=== PATIENT | female | born 1995 | race Hispanic/Latino ===

== ENCOUNTER 2024-08-02 20:44 | Observation (INO) | payer SELFPAY ==
[2024-08-02] MEDS ORDERED: diphenhydrAMINE 50 MG/ML VIAL ONE (21:18)
[2024-08-02] MEDS ORDERED: Metoclopramide HCl 10 MG (2 mL) VIAL ONE (21:18)
[2024-08-02 21:20] LABS: #Basophils 0.03 10x3/uL (0.0-0.2); #Eosinophils Less than 0.03 10x3/uL (0.0-0.7); %Basophils 0.3 % (0.0-1.0); %Lymphocytes 13.4 % (21.0-51.0); %Monocytes 5.2 % (0.0-10.0); %Neutrophils 80.9 % (42.0-75.0); Hematocrit 42.9 % (36.0-47.0); Hemoglobin 14.8 g/dL (12.0-16.0); Mean Corpuscular HGB CONC 34.5 g/dL (32.0-36.0); Mean Corpuscular Hemoglobin 26.9 pg (27.0-31.0); Mean Corpuscular Volume 77.9 fL (78.0-98.0); Mean Platelet Volume 9.9 fL (7.4-10.4); Platelet Count 307 10x3/uL (130-400); RBC Distribution Width 13.7 % (11.5-14.5); Red Blood Cell (RBC) Count 5.51 mill/uL (4.20-5.40)
[2024-08-02 21:39] LABS: Phosphorus 2.4 mg/dL (2.3-4.7)
[2024-08-02 21:40] LABS: ALT (SGPT) 11 U/L (8-55); AST (SGOT) 13 U/L (5-34); Albumin 4.4 g/dL (3.5-5.0); Alkaline Phosphatase 87 U/L (40-110); Anion Gap 24 mmol/L (10-20); BUN (Urea Nitrogen) 15 mg/dL (7.0-18.7); Bilirubin, Total 0.7 mg/dL (0.2-1.2); Calcium 9.4 mg/dL (7.8-10.44); Carbon Dioxide 19 mmol/L (22-29); Chloride 100 mmol/L (98-107); Globulin 3.5 g/dL (2.4-3.5); Glucose 346 mg/dL (70-105); Lipase 26 U/L (8-78); Magnesium 1.9 mg/dL (1.6-2.6); Potassium 3.6 mmol/L (3.5-5.1); Protein, Total 7.9 g/dL (6.0-8.3); Sodium 139 mmol/L (136-145)
[2024-08-02 21:45] LABS: Troponin I Less than 0.010 ng/mL (< 0.028)
[2024-08-02] MEDS ORDERED: Ondansetron PF 4 MG/2 ML Vial ONE (21:59)
[2024-08-02 22:28] LABS: Actual Bicarbonate (HCO3v) 24.1 mEq/L (22-28); Analyzer IN Cardio ER; Calcium, Ionized (venous) 1.07 mmol/L (1.16-1.32); Chloride (VBG) 100 mmol/L (98-106); Hematocrit-VBG 43 % (36.0-47.0); Hemoglobin (Hb) 14.5 g/dL (11.7-15.5); Potassium (VBG) 3.44 mmol/L (3.70-5.30); Sodium 141 mmol/L (133-146); pH (venous) 7.424 (7.32-7.43)
[2024-08-02 23:03] LABS: Calc. Creatinine Clearance 0 mL/min (70-130); Estimated GFR 123
[2024-08-02 23:31] LABS: Bacteria/HPF 3+ HPF (None Seen); Bilirubin Negative (Negative); Blood, Urine Negative (Negative); CAUTI Indications for Culture Dysuria,urgency,freq; Clarity Turbid (Clear); Glucose, Urine (Dipstick) Greater than 1000 mg/dL (Negative); Ketone, Urine 80 mg/dL (Negative); Leukocyte Negative Leu/uL (Negative); Nitrite Negative (Negative); Protein, Urine (Dipstick) 10 mg/dL (Neg-Trace); RBC/HPF 0-3 HPF (0-3)
[2024-08-02 23:48] LABS: Urine Culture Reflex Yes Yes
[2024-08-03] MEDS ORDERED: Promethazine HCl 25 MG/ML VIAL ONE (00:07)
[2024-08-03] MEDS ORDERED: Glucagon 1 MG/ML KIT IM PRN (00:18)
[2024-08-03] MEDS ORDERED: Dextrose 5% in Water 1,000 ML IV PRN (00:18)
[2024-08-03] MEDS ORDERED: Acetaminophen 325 MG TAB PO PRN (00:18)
[2024-08-03] MEDS ORDERED: Dextrose 50% Abboject 50 ML SYRINGE SLOW IVP PRN (00:18)
[2024-08-03 00:31] LABS: BHCG - Serum Negative (NEGATIVE); Pregs Control Background? CLEAR/WHITE (CLR/WHITE); Pregs Control Bar Appear? YES (CONTROL BAR)
[2024-08-03 00:39] LABS: Hemoglobin A1c 11.8 % (4.0-6.0)
[2024-08-03 01:05] VITALS: BMI 24.7
[2024-08-03] MEDS: Sodium Chloride 0.9% 1,000 ML IV SCH (01:32)
[2024-08-03] MEDS: Enoxaparin 40 MG (0.4 mL) SYRINGE SC SCH (01:32)
[2024-08-03] MEDS: diphenhydrAMINE 50 MG/ML VIAL IVP SCH (03:31)
[2024-08-03] MEDS: Metoclopramide HCl 10 MG (2 mL) VIAL IVP SCH ×2 (03:31→18:17)
[2024-08-03] MEDS: Sodium Bicarb 50 mEq/50 ML VIAL IVP SCH (04:03)
[2024-08-03] MEDS: Insulin Lispro 100 UNIT/ML 10 ML VIAL SC PRN ×2 (04:15→21:24)
[2024-08-03] MEDS: Labetalol HCl 100 MG/20 ML VIAL SLOW IVP SCH (04:45)
[2024-08-03 05:47] LABS: #Basophils Less than 0.03 10x3/uL (0.0-0.2); #Eosinophils Less than 0.03 10x3/uL (0.0-0.7); %Basophils 0.2 % (0.0-1.0); %Lymphocytes 12.5 % (21.0-51.0); %Monocytes 4.2 % (0.0-10.0); %Neutrophils 82.8 % (42.0-75.0); Hematocrit 36.2 % (36.0-47.0); Mean Corpuscular HGB CONC 33.1 g/dL (32.0-36.0); Mean Corpuscular Hemoglobin 26.8 pg (27.0-31.0); Platelet Count 285 10x3/uL (130-400); RBC Distribution Width 13.7 % (11.5-14.5); Red Blood Cell (RBC) Count 4.47 mill/uL (4.20-5.40)
[2024-08-03 06:19] LABS: Anion Gap 15 mmol/L (10-20); BUN (Urea Nitrogen) 9 mg/dL (7.0-18.7); Calc. Creatinine Clearance 182 mL/min (70-130); Calcium 7.7 mg/dL (7.8-10.44); Carbon Dioxide 21 mmol/L (22-29); Chloride 108 mmol/L (98-107); Estimated GFR 131; Glucose 179 mg/dL (70-105); Potassium 3.1 mmol/L (3.5-5.1); Sodium 141 mmol/L (136-145)
[2024-08-03] MEDS: Ondansetron PF 4 MG/2 ML Vial IVP PRN (07:26)
[2024-08-03] MEDS: Famotidine/PF 20 mg/2ml Vial SLOW IVP SCH (07:26)
[2024-08-03] MEDS: Promethazine HCl 12.5 MG in Sodium Chloride 0.9% 50 ML IVPB PRN (08:25)
[2024-08-03 09:18] LABS: Amphetamine Not Detected (NotDetected); Barbiturates Screen Not Detected (NotDetected); Benzodiazepine Screen Not Detected (NotDetected); Cocaine Metabolite Screen Not Detected (NotDetected); Methadone Not Detected (NotDetected); Methamphetamine Not Detected (NotDetected); Opiate Screen Not Detected (NotDetected); Oxycodone Screen Not Detected (NotDetected); Phencyclidine (PCP) Not Detected (NotDetected); THC/Cannabinoid Screen Not Detected (NotDetected); Tricyclic Screen Not Detected (NotDetected)
[2024-08-03] MEDS: Benzocaine/Menthol 1 LOZ LOZ PO PRN (12:11)
[2024-08-03] MEDS ORDERED: Electrolyte Replacement Protocol 1 EACH FS PRN (16:33)
[2024-08-03] MEDS: cefTRIAXone\\ROCEPHIN 1 GM in Sodium Chloride 0.9% 100 ML IVPB SCH (17:30)
[2024-08-03] MEDS: Sodium Chloride 0.45% 1,000 ML IV SCH (17:30)
[2024-08-03] MEDS ORDERED: Metoclopramide HCl 10 MG TAB PO SCH (17:45)
[2024-08-04] MEDS ORDERED: Potassium Chloride 20 MEQ in Premix 1 BAG IVPB SCH
[2024-08-04] MEDS: Potassium Bicarbonate/Cit Ac 20 MEQ TAB PO SCH (00:35)
[2024-08-04 06:15] LABS: #Basophils 0.04 10x3/uL (0.0-0.2); %Basophils 0.4 % (0.0-1.0); %Eosinophils 0.6 % (0.0-10.0); %Lymphocytes 42.7 % (21.0-51.0); %Monocytes 6.1 % (0.0-10.0); %Neutrophils 49.9 % (42.0-75.0); Hematocrit 35.8 % (36.0-47.0); Hemoglobin 11.4 g/dL (12.0-16.0); Mean Corpuscular HGB CONC 31.8 g/dL (32.0-36.0); Mean Corpuscular Hemoglobin 26.8 pg (27.0-31.0); Mean Platelet Volume 9.8 fL (7.4-10.4); Platelet Count 288 10x3/uL (130-400); RBC Distribution Width 13.9 % (11.5-14.5); Red Blood Cell (RBC) Count 4.26 mill/uL (4.20-5.40)
[2024-08-04 06:33] LABS: Anion Gap 12 mmol/L (10-20); BUN (Urea Nitrogen) 4 mg/dL (7.0-18.7); Calc. Creatinine Clearance 202 mL/min (70-130); Calcium 8.4 mg/dL (7.8-10.44); Carbon Dioxide 23 mmol/L (22-29); Chloride 109 mmol/L (98-107); Estimated GFR 134; Glucose 108 mg/dL (70-105); Magnesium 1.9 mg/dL (1.6-2.6); Potassium 3.6 mmol/L (3.5-5.1); Sodium 140 mmol/L (136-145)
[2024-08-04 08:02] VITALS: BP 132/85; TEMP 98.3
[2024-08-04] MEDS: Magnesium 2 GM/50 ML(in water) 2 GM in Premix 1 BAG IVPB SCH (10:07)
[2024-08-04] MEDS: Enoxaparin 40 MG (0.4 mL) SYRINGE SC SCH (10:07)
[2024-08-04] MEDS: Potassium Chloride 20 MEQ TAB PO SCH (10:40)
== END 2024-08-04 10:34 | disposition home or self-care (01) ==
LOC: ERS 20:44 → T4-A 08-03 00:28
PROVIDERS: ADMIT Internal Medicine; ATTEND Internal Medicine
DX: E11.43 Type 2 diabetes mellitus with diabetic autonomic (poly)neuropathy (principal); K31.84 Gastroparesis; N39.0 Urinary tract infection, site not specified; E87.6 Hypokalemia; Z87.59 Personal history of other complications of pregnancy, childbirth and the puerperium; Z90.49 Acquired absence of other specified parts of digestive tract; Z98.890 Other specified postprocedural states
CPT/HCPCS: 36415; 36416; 74018; 80048; 80053; 80306; 81001; 82010; 82805; 83036; 83690; 83735; 84100; 84484; 84703; 85025; 87077; 87086; 93005; 96361; 96372; 96374; 96375; 96376; G0378; J0696; J1200; J1650; J1815; J2405; J2550; J2765; J3490; J7030